=== PATIENT | female | born 1990 | race African-American/Black ===

== ENCOUNTER 2016-10-05 18:40 | Emergency (ER) | payer BC ==
[~2016-10-05 18:40] MED LIST: FLEXERIL10 MG PO; IBUPROFEN800 MG PO; LEXAPRO5 MG PO; MOTRIN400 MG PO; PHENERGAN PO; SEROQUEL PO
== END 2016-10-05 19:40 | disposition left against medical advice (07) ==
LOC: CED 18:40
DX: Z53.21 Procedure and treatment not carried out due to patient leaving prior to being seen by health care provider (principal)

== ENCOUNTER 2016-10-05 21:30 | Emergency (ER) | payer OTHER ==
--- NOTE | ~2016-10-05 | EKG ---
PATIENT: SID BECKMAN UNIT #: [id number] Ventricular Rate: 66 BPM Atrial Rate: 66 BPM P-R Interval: 154 ms QRS Duration: 78 ms Q-T Interval: 408 ms QTC Calculation(Bezet): 427 ms P [place]: 6 degrees Calculated R [place]: 67 degrees Calculated T [place]: 19 degrees Diagnosis Line: Normal sinus rhythm Diagnosis Line: Normal ECG Diagnosis Line: When compared with ECG of 18-MAR-2016 03:43, Diagnosis Line: No significant change was found Diagnosis Line: Confirmed by SLOAN QUINTANA MD ([id number]) on Diagnosis Line: 10/07/2016 10:34:00 AM INTERPRETING MD: MARIANO RAJAN
[2016-10-06 01:08] LABS: URINE SOURCE CLEAN CATCH
[2016-10-06 01:16] LABS: BASOPHIL% 0.2 % (0-2.5); EOSINOPHIL% 0.4 % (0.0-7.0); HEMATOCRIT 39.8 % (35.0-45.0); HEMOGLOBIN 12.9 gm/dL (12.0-16.0); LYMPHOCYTE# 2.1 X10e3 (1.0-3.5); LYMPHOCYTE% 24.6 % (17.0-45.0); MEAN CELL VOLUME 81.5 FL (83-96); MEAN CORPUSCULAR HEMOGLOBIN 26.4 PG (28-34); MEAN CORPUSCULAR HGB CONC 32.4 g/dL (30-36); MEAN PLATELET VOLUME 7.7 FL (6.5-11.5); MONOCYTE# 0.9 X10e3 (0-1.0); MONOCYTE% 10.5 % (3.0-12.0); NEUTROPHIL# 5.5 X10e3 (1.5-7.1); NEUTROPHIL% 64.3 % (40-75); PLATELET COUNT 272 X10e3 (140-420); RED BLOOD COUNT 4.88 X10e (3.90-5.30); RED CELL DISTRIBUTION WIDTH 13.5 % (11.0-15.5); WHITE BLOOD COUNT 8.6 X10e3 (4.0-10.5)
[2016-10-06 01:17] LABS: DIFF IND NO
[2016-10-06 01:25] LABS: URINE APPEARANCE CLEAR; URINE BILIRUBIN NEG (NEG); URINE BLOOD NEG (NEG); URINE COLOR YELLOW; URINE GLUCOSE 100 MG/DL (NEG); URINE KETONE 1+ (NEG); URINE LEUKOCYTE ESTERASE NEG (NEG); URINE NITRATE NEG (NEG); URINE PROTEIN TRACE (NEG); URINE SPECIFIC GRAVITY 1.012 (1.003-1.035); URINE UROBILINOGEN 0.2 MG/DL (NEG)
[2016-10-06 01:28] LABS: CULTURE INDICATED? NO
[2016-10-06 01:36] LABS: CALCIUM SERUM 9.1 mg/dL (8.4-10.2); CREATININE SERUM 0.6 mg/dL (0.6-1.4); GLOM FILT RATE Estimated 147.9 mL/min (>60); POTASSIUM 3.5 mmol/L (3.5-5.1)
== END 2016-10-06 02:30 | disposition home or self-care (01) ==
LOC: CED 21:30
PROVIDERS: Emergency Medicine
DX: O99.89 Other specified diseases and conditions complicating pregnancy, childbirth and the puerperium (principal); O99.341 Other mental disorders complicating pregnancy, first trimester; R55 Syncope and collapse; R11.0 Nausea; Z3A.12 12 weeks gestation of pregnancy; F41.9 Anxiety disorder, unspecified; F32.9 Major depressive disorder, single episode, unspecified; Z98.890 Other specified postprocedural states
CPT/HCPCS: 36415; 80048; 81003; 84703; 85025; 93005; 96374; 99284; J2550

== ENCOUNTER 2016-10-10 18:55 | Emergency (ER) | payer OTHER ==
[~2016-10-10] VITALS: Ht 157.5 cm; Wt 62.1 kg
[2016-10-10 22:16] LABS: URINE SOURCE CLEAN CATCH
[2016-10-10 22:19] LABS: BASOPHIL# 0.1 X10e3 (0-0.3); BASOPHIL% 0.4 % (0-2.5); EOSINOPHIL% 0.2 % (0.0-7.0); HEMATOCRIT 39.1 % (35.0-45.0); HEMOGLOBIN 12.5 gm/dL (12.0-16.0); LYMPHOCYTE# 1.6 X10e3 (1.0-3.5); LYMPHOCYTE% 12.5 % (17.0-45.0); MEAN CELL VOLUME 81.1 FL (83-96); MEAN CORPUSCULAR HEMOGLOBIN 25.9 PG (28-34); MEAN CORPUSCULAR HGB CONC 31.9 g/dL (30-36); MEAN PLATELET VOLUME 7.5 FL (6.5-11.5); MONOCYTE# 1.2 X10e3 (0-1.0); MONOCYTE% 8.9 % (3.0-12.0); NEUTROPHIL# 10.2 X10e3 (1.5-7.1); PLATELET COUNT 283 X10e3 (140-420); RED BLOOD COUNT 4.82 X10e (3.90-5.30); RED CELL DISTRIBUTION WIDTH 13.5 % (11.0-15.5)
[2016-10-10 22:20] LABS: URINE APPEARANCE CLEAR; URINE BILIRUBIN NEG (NEG); URINE BLOOD NEG (NEG); URINE COLOR YELLOW; URINE GLUCOSE NEG (NEG); URINE KETONE NEG (NEG); URINE LEUKOCYTE ESTERASE NEG (NEG); URINE NITRATE NEG (NEG); URINE PROTEIN NEG (NEG); URINE UROBILINOGEN 0.2 MG/DL (NEG)
[2016-10-10 22:21] LABS: DIFF IND NO
[2016-10-10 22:24] LABS: CULTURE INDICATED? NO
[2016-10-10 22:34] LABS: INR 0.9; PARTIAL THROMBOPLASTIN TIME 22.3 SECONDS (23.5-31.3)
[2016-10-10 22:48] LABS: INFLUENZA A NEG (NEG); INFLUENZA B NEG (NEG)
[2016-10-10 23:04] LABS: ALBUMIN SERUM 3.9 g/dL (3.5-5.0); BILIRUBIN, DIRECT 0.2 mg/dL (0.0-0.2); BILIRUBIN,INDIRECT 0.5 mg/dL (0.0-0.9); BILIRUBIN,TOTAL 0.7 mg/dL (0.2-2.0); BUN/CREATININE RATIO 12.5; CALCIUM SERUM 9.4 mg/dL (8.4-10.2); CREATININE SERUM 0.4 mg/dL (0.6-1.4); PROTEIN TOTAL SERUM 7.5 g/dL (6.0-8.3)
[2016-10-10 23:19] LABS: POTASSIUM 4.3 mmol/L (3.5-5.1)
== END 2016-10-11 01:05 | disposition home or self-care (01) ==
LOC: CED 18:55
PROVIDERS: Emergency Medicine
DX: O99.89 Other specified diseases and conditions complicating pregnancy, childbirth and the puerperium (principal); R51 Headache
CPT/HCPCS: 36415; 80048; 80076; 81003; 84703; 85025; 85610; 85730; 87651; 87804; 96361; 96374; 96375; 99284; J1200; J2765